=== PATIENT | female | born 1990 | race Caucasian/White ===

== ENCOUNTER 2018-10-23 20:07 | Emergency (ER) | payer OTHER, BC ==
[~2018-10-23] VITALS: Ht 154.9 cm; Wt 81.8 kg
[2018-10-23] MEDS ORDERED: NALTREXONE HYDR50 MG PO (21:16)
[2018-10-23] MEDS ORDERED: ADDERALL 20 MG20 MG PO (21:17)
[2018-10-23] MEDS ORDERED: EFFEXOR XR75 M2 PO (21:17)
[2018-10-23 22:45] VITALS: BP 138/75
== END 2018-10-23 22:45 | disposition home or self-care (01) ==
LOC: ED 20:07
DX: S93.521A Sprain of metatarsophalangeal joint of right great toe, initial encounter (principal); G93.2 Benign intracranial hypertension; F90.9 Attention-deficit hyperactivity disorder, unspecified type; F32.9 Major depressive disorder, single episode, unspecified; X50.9XXA Other and unspecified overexertion or strenuous movements or postures, initial encounter; Y92.410 Unspecified street and highway as the place of occurrence of the external cause